=== PATIENT | female | born 1995 | race Caucasian/White ===

== ENCOUNTER → 2017-08-11 | Day surgery (SDC) | payer BC ==
[2017-08-10 11:16] LABS: BASOPHILS # (AUTO) 0.1 (0.0-0.1); BASOPHILS % 0.9 % (0.0-1.0); EOSINOPHILS # (AUTO) 0.1 (0.0-0.4); EOSINOPHILS % 1.4 % (0.0-6.0); HEMATOCRIT 39.8 % (34.2-44.1); HEMOGLOBIN 12.5 g/dL (12.0-16.0); LYMPHOCYTES # (AUTO) 1.9 (1.0-3.2); LYMPHOCYTES % 33.6 % (18.0-39.1); MEAN CORPUSCULAR HEMOGLOBIN 24.6 pg (28-32); MEAN CORPUSCULAR HGB CONC 31.4 g/dL (31-35); MEAN CORPUSCULAR VOLUME 78.2 fL (81-99); MONOCYTES # (AUTO) 0.4 (0.2-0.8); MONOCYTES % 6.9 % (4.4-11.3); NEUTROPHILS # (AUTO) 3.2 (2.1-6.9); PLATELET COUNT 301 x10e3/uL (140-360); RED BLOOD COUNT 5.09 x10e6/uL (3.6-5.1); RED CELL DISTRIBUTION WIDTH 15.2 % (11.7-14.4)
[2017-08-10 11:48] LABS: ANION GAP 13.8 mmol/L (8-16); BLOOD UREA NITROGEN 6 mg/dL (7-26); BUN/CREATININE RATIO 8 (6-25); CALCIUM 9.9 mg/dL (8.4-10.2); CARBON DIOXIDE 27 mmol/L (22-29); CHLORIDE 107 mmol/L (98-107); CREATININE, SERUM 0.77 mg/dL (0.57-1.11); EST GLOMERULAR FILTRATION RATE > 60 ML/MIN (60-); GLUCOSE 95 mg/dL (74-118); POTASSIUM 4.8 mmol/L (3.5-5.1); SODIUM 143 mmol/L (136-145); URIC ACID 3.2 mg/dL (2.6-6.0)
[~2017-08-11] MED LIST: BELLADONNA/OPIUM 60 MG SUPP PR ONE; DEXAMETHASONE SOD PHOS INJ 4 MG/ML VIAL ONE; DITROPAN XL10 MG PO; FENTANYL CITRATE/PF 100MCG/2 ML INJ ONE; GENTAMICIN IV ONE; IOPAMIDOL 610MG/1ML 300 MG/ML VIAL IV ONE; LIDOCAINE HCL 2% LOCAL INJ 5 ML SDV VIAL INJ ONE; MIDAZOLAM HCL 2 MG/2 ML VIAL ONE; MORPHINE SULFATE 5 MG/ML VIAL ONE; NITROFURANTOIN100 MG PO; ONDANSETRON HCL INJ 2 MG/ML VIAL ONE; PROPOFOL IV EMULSION 10 MG/ML 20 ML VIAL ONE; SEVOFLURANE INHAL SOLN 250 ML PEN BTL ONE; [UNRECOGNIZED DRUG - OTHER] IV ONE
--- NOTE | 2017-08-11 09:52 | Diagnostic Imaging Report ---
PROCEDURE:X-RAY ABDOMEN - KUB COMPARISON:[facility], CT, CT ABDOMEN/PELVIS WO, 07/13/2017, 11:28. INDICATIONS:PREOPERATIVE XRAY FOR ESWL SURGERY FINDINGS: Small calcification overlies the lower pole of the left kidney. There are no dilated loops of bowel to suggest obstruction. There are no masses. There is no evidence of free air. No acute osseous abnormalities are present. CONCLUSION: Left renal lithiasis. Murphy Lim D.O. Dictated by: Murphy Lim D.O. on 08/11/2017 at 9:59 Electronically approved by: Murphy Lim D.O. on 08/11/2017 at 9:59
--- NOTE | 2017-09-18 23:53 | Operative Report ---
DATE OF PROCEDURE: August 11, 2017 PREOPERATIVE DIAGNOSES 1. Left nephrolithiasis. 2. Urinary tract infections. POSTOPERATIVE DIAGNOSES 1. Left nephrolithiasis. 2. Urinary tract infections. OPERATIONS PERFORMED 1. Left-sided extracorporeal shock wave lithotripsy (separately performed from a separate approach to pulverize the patient's 6-mm middle caliceal stone) (separate performed for the diagnosis of stone done from a separate approach). 2. Cystourethroscopy with bilateral ureteral catheterization and retrograde ureteropyelography (separate procedure performed for the urinary tract infections). 3. Interpretation of retrograde ureteropyelography. 4. Supervision of fluoroscopy. No radiologist present. ANESTHESIA: General. COMPLICATIONS: None. CLINICAL SUMMARY: Cindi Dominique is a 22-year-old woman with recurrent urolithiasis. Her stone has now grown to 6 mm in size and she desires management. She is aware of the risks of bleeding, infection, injury to adjacent structures, need for additional procedures and elected to proceed. OPERATIVE PROCEDURE IN DETAIL: Informed consent was verified. Cindi Dominique was properly identified, taken to operating room, placed on the lithotripsy table in supine position. Anesthesia was uneventfully begun. The patient's 6-mm middle caliceal stone on the left-hand side was localized with biplanar fluoroscopy. Total of 2000 shocks were delivered with complete pulverization of the stone. The stone started pulverizing fairly early in the shocks. By 1000 shocks, it was disappearing and by 2000 shocks, there was no visible stone and we stopped the procedure. The patient then carefully gently repositioned in the dorsal lithotomy position with all pressure points well padded. Her genitalia were prepared and draped in usual sterile fashion. The 22.5-Barbadian cystoscope sheath with the obturator in place was atraumatically inserted in the patient's urethra and the bladder was drained. Panendoscopy of the urinary bladder revealed no suspicious mucosal lesions, no tumors, no stones, and no diverticula. Normally positioned and configured ureteral orifices were identified. A ureteral catheter was used to cannulate each ureter and retrograde ureteropyelograms were performed. Interpretation of retrograde ureteropyelography: Contrast was instilled in a retrograde fashion bilaterally. There were no tumors, no stones, and no diverticula. Unobstructed drainage was observed bilaterally fluoroscopically. The only abnormality was a collection of filling defects in the location, where we pulverized the stone. This was consistent with blood clots and stone debris. The patient's bladder was then drained. The cystoscope was withdrawn. Pelvic examination under anesthesia revealed no cystocele, no rectocele, no abnormal palpable pelvic masses could be appreciated. The patient was then uneventfully reversed from anesthesia and taken to recovery in stable condition. Explicit postoperative instructions were given. We will plan on following the patient up in the office and of course, on a long-term basis. Job#: [id number] CQ cc:MIKO MATTHEWS DO
== END | disposition home or self-care (01) ==
LOC: OR 09:05
PROVIDERS: ATTEND Urology
DX: N20.0 Calculus of kidney (principal); N39.0 Urinary tract infection, site not specified; Z01.812 Encounter for preprocedural laboratory examination
CPT/HCPCS: 36415; 50590; 74000; 80048; 84550; 84702; 85025; 88300; J1100; J1580; J2001; J2250; J2270; J2405; Q9967

== ENCOUNTER → 2018-02-06 | Outpatient (CLI) | payer BC ==
[~2018-02-06] MED LIST changes: -BELLADONNA/OPIUM 60 MG SUPP PR ONE; -DEXAMETHASONE SOD PHOS INJ 4 MG/ML VIAL ONE; -FENTANYL CITRATE/PF 100MCG/2 ML INJ ONE; -GENTAMICIN IV ONE; -IOPAMIDOL 610MG/1ML 300 MG/ML VIAL IV ONE; -LIDOCAINE HCL 2% LOCAL INJ 5 ML SDV VIAL INJ ONE; -MIDAZOLAM HCL 2 MG/2 ML VIAL ONE; -MORPHINE SULFATE 5 MG/ML VIAL ONE; -ONDANSETRON HCL INJ 2 MG/ML VIAL ONE; -PROPOFOL IV EMULSION 10 MG/ML 20 ML VIAL ONE; -SEVOFLURANE INHAL SOLN 250 ML PEN BTL ONE; -[UNRECOGNIZED DRUG - OTHER] IV ONE
--- NOTE | 2018-02-06 12:25 | Diagnostic Imaging Report ---
PROCEDURE:US RETROPERITONEAL ( KIDNEY ). COMPARISON:Patients [facility], US, US RETROPERITONEAL ( KIDNEY )., 06/15/2016, 10:16. CT, CT ABDOMEN AND PELVIS WITHOUT CONTRAST, 12/25/2009, 22:13. CT, CT ABDOMEN/PELVIS WOW, 07/11/2016, 8:54. Patients [facility], US, US RETROPERITONEAL ( KIDNEY )., 01/26/2017, 10:16. Patients [facility], CT, CT ABDOMEN/PELVIS WO, 07/13/2017, 11:28. INDICATIONS:Calculus Of Kidney TECHNIQUE: Montague scale color Doppler ultrasound kidney FINDINGS: Right: 12.3 x 4.1 x 4.9 cm. Cortical thickness 1 cm. Left: 10.6 x 5.1 x 4.6 cm. Cortical thickness 1.6 cm. Both kidneys demonstrate normal parenchymal echogenicity. No hydronephrosis. Cyst/mass/stone: Right superior pole 1.7 x 1.1 x 1.3 cm (previously 1.3 x 1.1 x 1.2 cm on prior US study and 1.5 x 1.2 x [address] from July 2016) complex cyst with an adjacent calcification measuring 0.9 x 0.4 x 0.9 cm. There is internal echogenic debris. Left inferior anterior lower pole stone 0.3 x 0.4 x 0.3 cm. Patent ureters. Small volume dependent echogenic debris in the urinary bladder. CONCLUSION: 1. Complex right superior pole cyst stable in size given differences in techniques. 2. 4 mm nonobstructing inferior pole left renal stone. Dictated by: Griffin Truong M.D. on 02/06/2018 at 12:27 Electronically approved by: Griffin Truong M.D. on 02/06/2018 at 12:27
== END ==
LOC: US 11:12
PROVIDERS: ATTEND Urology
DX: N20.0 Calculus of kidney (principal)
CPT/HCPCS: 76770

== ENCOUNTER → 2018-05-02 | Outpatient (CLI) | payer BC ==
--- NOTE | 2018-05-02 15:57 | Diagnostic Imaging Report ---
EXAM: Renal Ultrasound INDICATION: \S\RENAL CYST COMPARISON: Renal ultrasound dated 02/06/2018 TECHNIQUE: Transverse and longitudinal images of the kidneys and bladder were obtained. FINDINGS: Right Kidney: Size: 11.1 cm Echogenicity: Normal Parenchymal thickness: Normal Collecting system: No hydronephrosis Stones: None Cyst/Mass: Complex upper pole cyst measuring 2.1 x 1.5 x 1.8 cm, previously 1.7 x 1.1 x 1.3 cm. There is approximately 1 cm internal echogenic focus, previously 0.9 cm. Left Kidney: Size: 9.9 cm Echogenicity: Normal Parenchymal thickness: Normal Collecting system: No hydronephrosis Stones: 0.3 cm inferior pole calculus. Cyst/Mass: None Bladder: Unremarkable. IMPRESSION: Slight interval increase in size of complex right renal superior pole cyst. If clinically indicated, this can be further evaluated with renal mass protocol MRI. Unchanged 0.3 cm left renal nonobstructive calculus. Signed by: Dr. Bob Turner MD on 05/02/2018 3:53 PM
== END ==
LOC: US 14:56
PROVIDERS: ATTEND Urology
DX: N20.0 Calculus of kidney (principal); N28.1 Cyst of kidney, acquired
CPT/HCPCS: 76770

== ENCOUNTER → 2018-10-26 | Outpatient (CLI) | payer BC ==
--- NOTE | 2018-10-26 11:35 | Diagnostic Imaging Report ---
EXAM: CT Abdomen and Pelvis WITHOUT contrast INDICATION: Follow-up for renal stones. COMPARISON: Renal ultrasound 05/02/2018. CT Abdomen/Pelvis 07/13/2017. TECHNIQUE: Abdomen and pelvis were scanned utilizing a multidetector helical scanner from the lung base to the pubic symphysis without administration of IV contrast. Absence of intravenous contrast decreases sensitivity for detection of focal lesions and vascular pathology. Coronal and sagittal reformations were obtained. Renal stone protocol was performed. Dose modulation, iterative reconstruction, and/or weight based adjustment of the mA/kV was utilized to reduce the radiation dose to as low as reasonably achievable. RADIATION DOSE: Total DLP: 172 mGy*cm COMPLICATIONS: None FINDINGS: LINES and TUBES: None. LOWER THORAX: Unremarkable HEPATOBILIARY: No focal hepatic lesions. No biliary ductal dilation. GALLBLADDER: No radio-opaque stones or sludge. No wall thickening. SPLEEN: No splenomegaly. PANCREAS: No focal masses or ductal dilatation. ADRENALS: No adrenal nodules KIDNEYS/URETERS: No hydronephrosis. There is an incompletely evaluated cystic lesion in the upper pole kidney. There is a hypodense component measures up to 1.3 cm, and along the superior/posterior aspect, there is a hyperdense component, measuring up to 1 cm series 401, image 48). The hyperdense component is new from CT on 07/13/2017. There is a 2 mm right mid pole renal stone, new since CT on 07/13/2017. There is a 3 mm left mid pole renal stone and 2 mm left lower pole renal stone. GI TRACT: No abnormal distention, wall thickening, or evidence of bowel obstruction. Appendix is normal. PELVIC ORGANS/BLADDER: The uterus appears somewhat enlarged, not well evaluated on non-contrast study. LYMPH NODES: No lymphadenopathy. VESSELS: Unremarkable. PERITONEUM / RETROPERITONEUM: No free air or fluid. BONES/SOFT TISSUES: Unremarkable. IMPRESSION: Bilateral non-obstructing renal stones measuring up to 3 mm in the left mid pole. No evidence of hydronephrosis. Complex cystic lesion in the right upper pole kidney, corresponding to complex cyst noted on renal ultrasound 05/02/2018. This lesion is incompletely evaluated on this study, but calcified/hyperdense component superiorly is new since CT on 07/13/2017. Renal protocol MRI may be considered for further evaluation. Enlarged, possibly fibroid uterus. Signed by: Dr. Dayana Angel MD on 10/26/2018 11:31 AM
== END ==
LOC: CT 09:57
PROVIDERS: ATTEND Urology
DX: N20.0 Calculus of kidney (principal)
CPT/HCPCS: 74176; 81025

== ENCOUNTER → 2020-02-04 | Outpatient (CLI) | payer BC ==
--- NOTE | 2020-02-04 12:20 | Diagnostic Imaging Report ---
CT of the abdomen and pelvis, without contrast. History: Calculus of kidney, flank pain. Comparison: CT from 10/26/2018. Technique: Multidetector CT scanning of the abdomen and pelvis was performed from the level of the lung bases to the inferior pubic rami without the use of contrast. Coronal and sagittal multiplanar reformations were obtained. RADIATION DOSE: Total DLP: 169.54 mGy*cm Dose modulation, iterative reconstruction, and/or weight based adjustment of the mA/kV was utilized to reduce the radiation dose to as low as reasonably achievable. FINDINGS: There is mild bibasilar atelectasis. The visual as portions the heart demonstrates no significant abnormalities. The liver is normal in size and attenuation on this noncontrast enhanced examination. The gallbladder is unremarkable. There is no biliary ductal dilatation. The stomach, spleen, pancreas, and bilateral adrenal glands are unremarkable. The kidneys are normal in size and location. Again identified is a cystic lesion within the upper pole the right kidney measuring up to 1.3 cm and contains suspected peripheral calcification. This lesion is incompletely evaluated on this noncontrast enhanced examination but grossly stable in size. A punctate (2 mm) nonobstructing stone is identified within the inferior pole of the left kidney. There is no evidence for hydronephrosis. No ureteral stone or dilatation is appreciated. The urinary bladder demonstrates no significant abnormalities. The uterus and adnexa are grossly unremarkable. The abdominal aorta is normal course and caliber. The IVC is unremarkable. Please note evaluation the bowel is limited without the use of enteric contrast material. The visualized loops of small and large bowel demonstrate no evidence of obstruction or inflammation. The appendix is visualized and appears unremarkable. There is no ascites or intracranial free air. No abnormally enlarged lymph nodes are identified within the abdomen or pelvis. The osseous structures to the straight no evidence for acute fracture or destructive process. The extra perineal soft tissues are unremarkable. IMPRESSION: Single nonobstructing 2 mm stone identified within the inferior pole of the left kidney. No evidence for hydronephrosis or obstructive uropathy. Mildly complex cystic structure with peripheral calcifications again identified within the superior pole the right kidney which is incompletely evaluated on this noncontrast enhanced examination but appears grossly stable in size from the prior examination from 10/26/2018. Signed by: Dr. Gurjit Frances MD on 02/04/2020 12:16 PM
== END ==
LOC: CT 11:11
PROVIDERS: ATTEND Urology
DX: N20.0 Calculus of kidney (principal)
CPT/HCPCS: 74176

== ENCOUNTER → 2022-05-09 | Outpatient (CLI) | payer BC | LOC: RAD 10:01 | PROVIDERS: ATTEND Urology | DX: N20.0 Calculus of kidney (principal) | CPT/HCPCS: 74018; 81025 ==

== ENCOUNTER → 2023-03-24 | Outpatient (CLI) | payer OTHER | LOC: RAD 10:29 | PROVIDERS: ATTEND Urology | DX: N20.0 Calculus of kidney (principal) | CPT/HCPCS: 74018; 81025 ==

== ENCOUNTER → 2024-05-28 | Outpatient (REF) | payer OTHER | LOC: CT 14:38 | PROVIDERS: ATTEND Urology | DX: N20.0 Calculus of kidney (principal) | CPT/HCPCS: 74176; 81025 ==